=== PATIENT | female | born 1970 | race Caucasian/White ===

== ENCOUNTER 2016-10-25 14:09 | Emergency (ER) | payer OTHER ==
[~2016-10-25] VITALS: Ht 157.5 cm; Wt 76.0 kg
[~2016-10-25 14:09] MED LIST: ASPIR 8181 M1 PO; ELAVIL25 MG PO; GABAPENTIN300 MG PO; LEVAQUIN500 MG PO; LIDOCAINE HCL35 GM TP; LIPITOR20 MG PO; MOTRIN600 MG PO; NABUMETONE500 MG PO; NAPROXEN500 MG PO; NEURONTIN100 MG PO; NICOTINE PATCH1 EAC2 TD; NORCO 5/3251 TABLET PO; PREDNISONE20 MG PO; REQUIP2 MG PO; SYNTHROID150 MCG PO; ULTRAM50 MG PO
[2016-10-25] MEDS ORDERED: NAPROXEN500 MG PO (16:23)
[2016-10-25] MEDS ORDERED: LEVOTHYROXINE150 MCG PO (16:23)
[2016-10-25] MEDS ORDERED: AMITRIPTYLINE H25 MG PO (16:23)
[2016-10-25 16:55] VITALS: BP 130/96
== END 2016-10-25 17:01 | disposition home or self-care (01) ==
LOC: EME 14:09
DX: S93.401A Sprain of unspecified ligament of right ankle, initial encounter (principal); X58.XXXA Exposure to other specified factors, initial encounter; M19.071 Primary osteoarthritis, right ankle and foot; F17.200 Nicotine dependence, unspecified, uncomplicated
CPT/HCPCS: 73610; 99281; 99283

== ENCOUNTER 2017-10-02 09:47 | Emergency (ER) | payer OTHER ==
[~2017-10-02] VITALS: Ht 157.5 cm; Wt 71.3 kg
[~2017-10-02 09:47] MED LIST changes: +AMITRIPTYLINE H25 MG PO; +LEVOTHYROXINE150 MCG PO
[2017-10-02] MEDS ORDERED: LIDODERM 5% P1 PATCH TD (12:16)
[2017-10-02 12:30] VITALS: BP 101/77
== END 2017-10-02 12:32 | disposition home or self-care (01) ==
LOC: EME 09:47
DX: S39.012A Strain of muscle, fascia and tendon of lower back, initial encounter (principal); M54.42 Lumbago with sciatica, left side; M54.41 Lumbago with sciatica, right side; G89.29 Other chronic pain; Z88.0 Allergy status to penicillin; Z88.6 Allergy status to analgesic agent; Z88.8 Allergy status to other drugs, medicaments and biological substances; J30.2 Other seasonal allergic rhinitis
CPT/HCPCS: 72100; 99281; 99284; J1885

== ENCOUNTER 2017-10-29 12:44 | Emergency (ER) | payer OTHER ==
[~2017-10-29] VITALS: Ht 157.5 cm; Wt 71.4 kg
[~2017-10-29 12:44] MED LIST changes: +LIDODERM 5% P1 PATCH TD
[2017-10-29 13:27] LABS: HEMOGLOBIN 14.4 G/DL (11.9-15.5); MCH 31.6 PG (29.0-34.0); MCHC 34.3 G/DL (30.0-36.0); MCV 92.1 FL (83-99); PLATELET COUNT 202 K/uL (156-360); RBC DIS.WIDTH-CV 13.1 % (11.8-14.6); RED BLOOD COUNT 4.56 M/uL (3.80-5.20); WHITE BLOOD COUNT 9.8 K/uL (4.1-10.2)
[2017-10-29 13:36] LABS: CHLORIDE 108 mEq/L (99-109); POTASSIUM 3.9 mEq/L (3.7-5.4); SODIUM 140 mEq/L (136-147)
[2017-10-29 13:38] LABS: GLUCOSE 109 mg/dL (70-99); TOTAL PROTEIN 6.4 g/dL (6.4-8.3)
[2017-10-29 13:40] LABS: TOTAL BILIRUBIN 0.4 mg/dL (0.0-1.0)
[2017-10-29 13:41] LABS: ALKALINE PHOSPHATASE 63 IU/L (3-129)
[2017-10-29 13:42] LABS: CREATININE 0.8 mg/dL (0.6-1.3); GFR ESTIMATE (CALCULATED) > 59 mL/min/
[2017-10-29 13:43] LABS: AST (GOT) 16 IU/L (2-34); UREA NITROGEN (BUN) 10 mg/dL (9-23)
[2017-10-29 13:45] LABS: ALT (GPT) 16 IU/L (3-49); LIPASE 7 U/L (1.0-51.0)
[2017-10-29 13:53] LABS: QUANTITATIVE HCG < 4.0 MIU/ML
[2017-10-29 13:57] LABS: APPEARANCE CLEAR ((CLEAR)); BILIRUBIN NEGATIVE; BLOOD NEGATIVE; COLOR YELLOW ((YELLOW)); GLUCOSE (STRIP) NEGATIVE; KETONES NEGATIVE; LEUKOCYTES NEGATIVE; NITRITE POSITIVE; PROTEIN (STRIP) NEGATIVE; SPECIFIC GRAVITY 1.011 (1.000-1.030); UROBILINOGEN 0.2 MG/DL (0.2-1.0)
[2017-10-29 13:59] LABS: BACTERIA RARE /HPF; EPITHELIAL CELLS RARE /HPF; MUCUS TRACE /LPF; RED BLOOD CELLS 0-5 /HPF (0-5); UCUL ADDED? NO; WHITE BLOOD CELLS 0-5 /HPF (0-5)
[2017-10-29 14:09] LABS: SERUM ETHYL ALCOHOL < 10 mg/dL
[2017-10-29 14:12] LABS: ACETAMINOPHEN (TYLENOL) < 10 mcg/mL (10-30)
[2017-10-29 14:22] LABS: AMPHETAMINE NEGATIVE (500 ng/mL); BARBITURATES NEGATIVE (200 ng/mL); BENZODIAZEPINES NEGATIVE (150 ng/mL); BUPRENORPHINE NEGATIVE (10 ng/mL); COCAINE NEGATIVE (150 ng/mL); METHADONE NEGATIVE (200 ng/mL); METHAMPHETAMINE NEGATIVE (500 ng/mL); OPIATES (MORPHINE) PRESUMPTIVE POSITIVE (100 ng/mL); OXYCODONE NEGATIVE (100 ng/mL); PHENCYCLIDINE NEGATIVE (25 ng/mL); PROPOXYPHENE NEGATIVE (300 ng/mL); THC CANNABINOIDS NEGATIVE (50 ng/mL); TRICYCLIC ANTIDEPRESSANTS PRESUMPTIVE POSITIVE (300 ng/mL)
[2017-10-29] MEDS ORDERED: BACTRIM,SEPT1 TABLET PO (14:57)
[2017-10-29 15:55] VITALS: BP 116/84
== END 2017-10-29 15:57 | disposition home or self-care (01) ==
LOC: EME 12:44
PROVIDERS: Physician Assistant
DX: R42 Dizziness and giddiness (principal); R25.8 Other abnormal involuntary movements; R53.1 Weakness; T50.995A Adverse effect of other drugs, medicaments and biological substances, initial encounter; N39.0 Urinary tract infection, site not specified; K21.9 Gastro-esophageal reflux disease without esophagitis; F31.9 Bipolar disorder, unspecified; F41.9 Anxiety disorder, unspecified; F32.9 Major depressive disorder, single episode, unspecified; F17.200 Nicotine dependence, unspecified, uncomplicated; Z88.0 Allergy status to penicillin; Z88.6 Allergy status to analgesic agent; Z88.8 Allergy status to other drugs, medicaments and biological substances
CPT/HCPCS: 71046; 80053; 81003; 83690; 84702; 84999; 85027; 99281; 99284; G0480; J0696; J7030

== ENCOUNTER 2018-02-23 14:25 | Emergency (ER) | payer OTHER ==
[~2018-02-23] VITALS: Ht 157.5 cm; Wt 70.2 kg
[~2018-02-23 14:25] MED LIST changes: +BACTRIM,SEPT1 TABLET PO
[2018-02-23 14:32] VITALS: BP 132/90
[2018-02-23] MEDS ORDERED: CLEOCIN300 MG PO (15:24)
== END 2018-02-23 16:11 | disposition home or self-care (01) ==
LOC: EME 14:25
DX: H05.011 Cellulitis of right orbit (principal); F17.200 Nicotine dependence, unspecified, uncomplicated; Z88.0 Allergy status to penicillin; Z88.6 Allergy status to analgesic agent; Z88.8 Allergy status to other drugs, medicaments and biological substances
CPT/HCPCS: 99281; 99284